=== PATIENT | male | born 2000 | race Caucasian/White ===

== ENCOUNTER 2018-05-23 00:39 | Emergency (ER) | payer SELFPAY ==
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
[2018-05-23 02:36] VITALS: BP 140/92
== END 2018-05-23 02:30 | disposition home or self-care (01) ==
LOC: ED 00:39
DX: S01.511A Laceration without foreign body of lip, initial encounter (principal); W50.0XXA Accidental hit or strike by another person, initial encounter; Y92.9 Unspecified place or not applicable; Z88.0 Allergy status to penicillin; Z72.0 Tobacco use
CPT/HCPCS: 12011; 99282